=== PATIENT | male | born 1980 | race Caucasian/White ===

== ENCOUNTER 2022-01-09 09:57 | Emergency (ER) | payer SELFPAY ==
[~2022-01-09] VITALS: Ht 165.1 cm; Wt 79.4 kg
[2022-01-09 10:07] VITALS: BP 174/88
[2022-01-09] MEDS ORDERED: IBUP-1878 PO (12:41)
[2022-01-09] MEDS ORDERED: TAM75 PO (12:41)
[2022-01-09] MEDS ORDERED: PROM118S5 PO (12:41)
--- NOTE | 2022-01-09 12:55 | NUR ---
Patient discharged with v/s stable. Written and verbal after care instructions given and explained. Patient alert, oriented and verbalized understanding of instructions. Ambulatory with steady gait. All questions addressed prior to discharge. ID band removed. Patient advised to follow up with PMD. Rx of TAMIFLU. MOTRIN given. Patient educated on indication of medication including possible reaction and side effects. Opportunity to ask questions provided and answered.
== END 2022-01-09 12:55 | disposition home or self-care (01) ==
LOC: MED 09:57
DX: J10.1 Influenza due to other identified influenza virus with other respiratory manifestations (principal); Z20.822 Contact with and (suspected) exposure to COVID-19; R03.0 Elevated blood-pressure reading, without diagnosis of hypertension
CPT/HCPCS: 99283

== ENCOUNTER 2022-12-05 12:00 | Emergency (ER) | payer MEDICAID ==
[~2022-12-05] VITALS: Ht 154.9 cm; Wt 72.6 kg
[~2022-12-05 12:00] MED LIST: IBUP-1878 PO; PROM118S5 PO; TAM75 PO
[2022-12-05 12:05] VITALS: BP 213/134; PULSE 82; RESP 18; TEMP 98; O2SAT 99
[2022-12-05 12:59] LABS: BASOPHILS % (AUTO) 0.5 % (0.0-2.0); EOSINOPHILS # (AUTO) 0.2 K/uL (0-0.4); EOSINOPHILS % (AUTO) 2.4 % (0.0-4.0); HEMATOCRIT 45.7 % (36-52); HEMOGLOBIN 15.7 g/dL (12.0-18.0); LYMPHOCYTES # (AUTO) 1.7 K/uL (2.0-11.5); LYMPHOCYTES % (AUTO) 23.7 % (20.5-51.1); MEAN CORPUSCULAR HEMOGLOBIN 31 pg (27-31); MEAN CORPUSCULAR HGB CONC 34 g/dL (33-37); MEAN CORPUSCULAR VOLUME 89.2 fL (80-94); MONOCYTES # (AUTO) 0.5 K/uL (0.8-1.0); MONOCYTES % (AUTO) 7.3 % (1.7-9.3); NEUTROPHILS # (AUTO) 4.9 K/uL (1.8-7.7); NEUTROPHILS % (AUTO) 66.1 % (42.2-75.2); PLATELET COUNT (AUTO) 169 K/uL (140-450); RED BLOOD CELL COUNT(AUTO) 5.13 MIL/uL (4.20-6.10); RED CELL DISTRIBUTION WIDTH 13.2 % (11.6-13.7); WHITE BLOOD COUNT (AUTO) 7.4 K/uL (4.8-10.8)
[2022-12-05 13:14] LABS: INR 1.06 (0.8-1.2); PARTIAL THROMBOPLASTIN TIME 28.3 secs (22-35.6); PROTHROMBIN TIME 11.1 secs (10.8-13.4)
[2022-12-05 13:18] LABS: ALANINE AMINOTRANSFERASE 169 U/L (12-78); ALBUMIN 3.2 g/dL (3.4-5.0); ALKALINE PHOSPHATASE 142 U/L (50-136); ASPARTATE AMINOTRANSFERASE 70 U/L (15-37); CALCIUM 8.4 mg/dL (8.5-10.1); CARBON DIOXIDE 28.6 mmol/L (21-32); CHLORIDE 99 mmol/L (98-107); CREATININE 1.1 mg/dL (0.6-1.3); GFR ARICAN-AMERICAN 95 mL/min (>90); GFR NON ARICAN-AMERICAN 78 mL/min (>90); GLUCOSE 172 mg/dL (74-106); POTASSIUM 3.6 mmol/L (3.5-5.1); SODIUM SERUM 133 mmol/L (136-145); TOTAL BILIRUBIN 0.5 mg/dL (0.0-1.0); TOTAL PROTEIN, SERUM 6.9 g/dL (6.4-8.2); UREA NITROGEN, BLOOD 11 mg/dL (7-18)
[2022-12-05] MEDS ORDERED: hydrALAZINE 20 MG/ML VIAL IVP ONE (13:35)
[2022-12-05] MEDS ORDERED: PRED20TA5 PO (13:54)
[2022-12-05] MEDS ORDERED: AMLO5TAB PO (13:54)
[2022-12-05] MEDS ORDERED: VALA1TAB40 PO (13:54)
[2022-12-05] MEDS ORDERED: ASPIRIN 325 MG TAB PO ONE (14:25)
[2022-12-05 14:53] VITALS: RESP 16; TEMP 98.6; O2SAT 100
[2022-12-05 14:56] VITALS: BP 173/121; PULSE 80
== END 2022-12-05 14:53 | disposition home or self-care (01) ==
LOC: MED 12:00
DX: G51.0 Bell's palsy (principal); I10 Essential (primary) hypertension; R74.01 Elevation of levels of liver transaminase levels; Z79.899 Other long term (current) drug therapy; Z79.1 Long term (current) use of non-steroidal anti-inflammatories (NSAID)
CPT/HCPCS: 36415; 70450; 70496; 70498; 71045; 80053; 84484; 85025; 85610; 85730; 86886; 86900; 86901; 93005; 96374; 99291; J0360; Q0092; Q9967

== ENCOUNTER 2022-12-07 10:55 | Emergency (ER) | payer MEDICAID ==
[~2022-12-07] VITALS: Ht 160 cm; Wt 81.6 kg
[~2022-12-07 10:55] MED LIST changes: +AMLO5TAB PO; +PRED20TA5 PO; +VALA1TAB40 PO
[2022-12-07 11:10] VITALS: BP 170/99; PULSE 66; RESP 16; TEMP 97.4; O2SAT 99
[2022-12-07] MEDS ORDERED: AMLO10TA PO (14:23)
[2022-12-07 15:50] VITALS: BP 133/103; PULSE 82; RESP 17; TEMP 97.6; O2SAT 97
== END 2022-12-07 15:54 | disposition home or self-care (01) ==
LOC: MED 10:55
DX: I10 Essential (primary) hypertension (principal); I49.3 Ventricular premature depolarization; G51.0 Bell's palsy; Z79.899 Other long term (current) drug therapy; Z79.1 Long term (current) use of non-steroidal anti-inflammatories (NSAID)
CPT/HCPCS: 93005; 99283